=== PATIENT | female | born 1965 | race Caucasian/White ===

== ENCOUNTER → 2020-06-24 | Outpatient (CLI) | payer OTHER | LOC: MC.RAD 14:51 | DX: Z12.31 Encounter for screening mammogram for malignant neoplasm of breast (principal) ==

== ENCOUNTER 2020-12-24 09:45 | Outpatient (RCR) | payer OTHER | END 2021-02-09 | disposition home or self-care (01) | LOC: WSPT | DX: S13.4XXA Sprain of ligaments of cervical spine, initial encounter (principal) ==

== ENCOUNTER → 2020-12-29 | Outpatient (CLI) | payer OTHER | LOC: COL.RAD 09:34 | DX: M47.22 Other spondylosis with radiculopathy, cervical region (principal); M50.222 Other cervical disc displacement at C5-C6 level; M48.02 Spinal stenosis, cervical region ==

== ENCOUNTER → 2021-01-20 | Outpatient (CLI) | payer OTHER | LOC: MHCPAIN 07:48 | DX: M47.812 Spondylosis without myelopathy or radiculopathy, cervical region (principal); M54.2 Cervicalgia; R51.9 Headache, unspecified; G89.29 Other chronic pain | CPT/HCPCS: G0463 ==

== ENCOUNTER → 2021-01-28 | Outpatient (CLI) | payer OTHER | LOC: MHCPAIN 13:33 | DX: M47.812 Spondylosis without myelopathy or radiculopathy, cervical region (principal); M54.2 Cervicalgia; R51.9 Headache, unspecified ==

== ENCOUNTER → 2021-02-03 | Outpatient (CLI) | payer OTHER | LOC: MHCPAIN 08:04 | DX: M47.812 Spondylosis without myelopathy or radiculopathy, cervical region (principal); M54.2 Cervicalgia; R51.9 Headache, unspecified; G89.29 Other chronic pain; S13.4XXA Sprain of ligaments of cervical spine, initial encounter | CPT/HCPCS: G0463 ==

== ENCOUNTER → 2021-02-15 | Outpatient (CLI) | payer OTHER | LOC: MHCPAIN 11:30 | DX: M47.812 Spondylosis without myelopathy or radiculopathy, cervical region (principal); M54.2 Cervicalgia; R51.9 Headache, unspecified ==

== ENCOUNTER → 2021-03-04 | Outpatient (CLI) | payer OTHER | LOC: MHCPAIN 12:45 | DX: M47.812 Spondylosis without myelopathy or radiculopathy, cervical region (principal); M54.2 Cervicalgia; R51.9 Headache, unspecified | CPT/HCPCS: G0463; J1100; J2250; J3010 ==

== ENCOUNTER → 2021-03-30 | Outpatient (CLI) | payer OTHER | LOC: COL.LAB 09:55 | DX: D50.9 Iron deficiency anemia, unspecified (principal) ==

== ENCOUNTER → 2021-04-06 | Outpatient (CLI) | payer OTHER ==
[2021-04-06 09:33] LABS: HEMATOCRIT 37.3 % (37.0-47.0); HEMOGLOBIN 11.5 g/dl (12.5-16.0); MEAN CELL VOLUME 83 fl (80.0-100.0); MEAN CORPUSCULAR HEMOGLOBIN 26 pg (27.0-31.0); MEAN CORPUSCULAR HGB CONC 31 g/dl (33.0-37.0); MEAN PLATELET VOLUME 9.1 fl (7.4-10.4); PLATELET COUNT 329 K/mm3 (130-400); RED BLOOD COUNT 4.51 M/mm3 (4.10-5.30); REDCELL DISTRIBUTION WIDTH-CV 16.5 % (11.5-14.5)
== END ==
LOC: COL.LAB 09:12
PROVIDERS: Family Medicine
DX: D50.9 Iron deficiency anemia, unspecified (principal)

== ENCOUNTER → 2021-05-12 | Outpatient (CLI) | payer OTHER | LOC: MHCPAIN 12:30 | DX: M47.812 Spondylosis without myelopathy or radiculopathy, cervical region (principal); M54.12 Radiculopathy, cervical region; M54.81 Occipital neuralgia; M54.2 Cervicalgia | CPT/HCPCS: G0463 ==

== ENCOUNTER → 2021-06-02 | Outpatient (CLI) | payer OTHER | LOC: MHCPAIN 12:39 | DX: M47.812 Spondylosis without myelopathy or radiculopathy, cervical region (principal); M54.12 Radiculopathy, cervical region; G89.29 Other chronic pain | CPT/HCPCS: G0463 ==

== ENCOUNTER → 2021-06-16 | Outpatient (CLI) | payer OTHER ==
[2021-06-16 16:29] LABS: HEMATOCRIT 37.2 % (37.0-47.0); HEMOGLOBIN 11.6 g/dl (12.5-16.0); MEAN CELL VOLUME 81 fl (80.0-100.0); MEAN CORPUSCULAR HEMOGLOBIN 25 pg (27.0-31.0); MEAN CORPUSCULAR HGB CONC 31 g/dl (33.0-37.0); MEAN PLATELET VOLUME 9.2 fl (7.4-10.4); PLATELET COUNT 330 K/mm3 (130-400); RED BLOOD COUNT 4.58 M/mm3 (4.10-5.30); REDCELL DISTRIBUTION WIDTH-CV 15.2 % (11.5-14.5)
== END ==
LOC: COL.LAB 13:55
PROVIDERS: Family Medicine
DX: D50.9 Iron deficiency anemia, unspecified (principal)

== ENCOUNTER → 2021-07-05 | Outpatient (CLI) | payer OTHER | LOC: MHCPAIN 06-14 14:13 | DX: M47.812 Spondylosis without myelopathy or radiculopathy, cervical region (principal); M54.2 Cervicalgia; M54.12 Radiculopathy, cervical region | CPT/HCPCS: G0463; J1100; Q9967 ==

== ENCOUNTER → 2021-07-19 | Outpatient (CLI) | payer OTHER | LOC: MHCPAIN 15:36 | DX: M47.812 Spondylosis without myelopathy or radiculopathy, cervical region (principal); M54.2 Cervicalgia; M54.81 Occipital neuralgia | CPT/HCPCS: G0463 ==

== ENCOUNTER → 2021-09-28 | Outpatient (CLI) | payer OTHER | LOC: MC.RAD 07-19 13:00 | DX: Z12.31 Encounter for screening mammogram for malignant neoplasm of breast (principal) ==

== ENCOUNTER 2021-11-30 07:42 | Day surgery (SDC) | payer OTHER ==
[~2021-11-30] VITALS: Ht 172.7 cm; Wt 100.5 kg
[~2021-11-30 07:42] MED LIST: HYZAAR 50-12.1 UDTAB PO; JARDIANCE25 PO; K-DUR20 MEQ PO; LIPITOR20 MG PO; MAXZIDE-25MG TA1 TAB PO; OZEMPIC0.25 MG/0. SQ; PRILOSEC 20MG20 MG PO; TURMERIC500 MG PO
[2021-11-30] MEDS ORDERED: FORT1000TA PO (08:37)
[2021-11-30] MEDS ORDERED: ZYRTEC 10MG10 MG PO (08:38)
[2021-11-30 10:13] VITALS: BP 150/93; PULSE 66
--- NOTE | 2021-11-30 10:13 | NUR ---
PATIENT RETURNS TO [facility] PER CART AND TRANSFERS FROM CART TO RECLINER WITH TWO PERSON ASSIST. IV FLUIDS INFUSING. TEMP 98.6 AND ROOM AIR SATS 97%. SPOUSE IN ROOM. CALL LIGHT IN REACH. COMPLAINS OF GAS PAINS. HOT BLANKET PLACED ON ABDOMEN. SIPPING ON HOT TEA.
[2021-11-30 10:28] VITALS: BP 150/81; PULSE 62
--- NOTE | 2021-11-30 10:28 | NUR ---
CONTINUES TO SIP ON HOT TEA AND IS TALKING WITH SPOUSE. IV FLUIDS INFUSING.
[2021-11-30 10:43] VITALS: BP 168/83; PULSE 68
--- NOTE | 2021-11-30 10:43 | NUR ---
Resting and tolerates hot tea. Refuses snack at present time.
--- NOTE | 2021-11-30 11:01 | NUR ---
DISMISSAL INSTRUCTIONS GIVEN AND PATIENT VOICES UNDERSTANDING OF THESE. PROVIDED OFFICE NUMBER FOR QUESTIONS AND CONCERNS. TAKEN PER WHEELCHAIR TO THE FRONT ENTRANCE AND ASSISTED INTO PRIVATE VEHICLE WITH DISMISSAL INSTRUCTIONS IN HAND.
== END 2021-11-30 11:01 | disposition home or self-care (01) ==
LOC: SDCO 07:42
DX: D12.3 Benign neoplasm of transverse colon (principal); K64.0 First degree hemorrhoids; E66.9 Obesity, unspecified; Z86.16 Personal history of COVID-19
CPT/HCPCS: J2704

== ENCOUNTER → 2022-02-11 | Outpatient (CLI) | payer OTHER ==
[~2022-02-11] MED LIST changes: +FORT1000TA PO; +ZYRTEC 10MG10 MG PO
[2022-02-11 14:02] LABS: BASO # 0.1 K/mm3 (0.0-0.2); BASO % 0.8 % (0.0-2.0); EOS # 0.2 K/mm3 (0.0-0.7); EOS % 2.3 % (0.0-4.0); GRAN # 4.3 K/mm3 (1.4-6.5); GRAN % 59.2 % (42.2-75.2); HEMATOCRIT 40.2 % (37.0-47.0); HEMOGLOBIN 13.3 g/dl (12.5-16.0); LYMPH # 2.2 K/mm3 (1.2-3.4); LYMPH % 30.5 % (20.0-51.0); MEAN CELL VOLUME 88 fl (80.0-100.0); MEAN CORPUSCULAR HEMOGLOBIN 29 pg (27-31); MEAN CORPUSCULAR HGB CONC 33 g/dl (33.0-37.0); MEAN PLATELET VOLUME 9.5 fl (7.4-10.4); MONO # 0.5 K/mm3 (0.1-0.6); MONO % 6.9 % (1.7-9.3); PLATELET COUNT 261 K/mm3 (130-400); RED BLOOD COUNT 4.56 M/mm3 (4.10-5.30); REDCELL DISTRIBUTION WIDTH-CV 13.6 % (11.5-14.5)
== END ==
LOC: COL.LAB 13:28
PROVIDERS: Obstetrics & Gynecology
DX: Z78.0 Asymptomatic menopausal state (principal)